=== PATIENT | female | born 1990 | race Caucasian/White ===

== ENCOUNTER → 2017-05-31 | Emergency (ER) | payer OTHER ==
[~2017-05-31] VITALS: Ht 154.9 cm; Wt 57.2 kg
[~2017-05-31] MED LIST: DICLEGIS DR 101 EACH; PRENATAL TABLE1 EAC2
== END | disposition home or self-care (01) ==
LOC: ER 21:38
DX: O21.0 Mild hyperemesis gravidarum (principal); Z34.81 Encounter for supervision of other normal pregnancy, first trimester

== ENCOUNTER 2017-07-23 10:16 | Outpatient (CLI) | payer OTHER | END 2017-07-23 13:02 | disposition home or self-care (01) | LOC: LAB 10:16 | DX: R05 Cough (principal) ==